=== PATIENT | female | born 1995 | race Hispanic/Latino ===

== ENCOUNTER 2023-04-26 10:03 | Emergency (ER) | payer SELFPAY ==
[2023-04-26 11:03] LABS: SARS-CoV-2 NAA Rapid Test Not Detected (NotDetected)
[2023-04-26] MEDS ORDERED: Dexamethasone 10 MG/ML VIAL ONE (11:50)
== END 2023-04-26 11:59 | disposition home or self-care (01) ==
LOC: CSHERS 10:03
DX: B34.9 Viral infection, unspecified (principal)
CPT/HCPCS: 87081; 87430; 99283; J1100; U0002

== ENCOUNTER 2024-01-30 22:40 | Emergency (ER) | payer SELFPAY | END 2024-01-31 00:19 | disposition home or self-care (01) | LOC: CSHERS 22:40 | DX: B34.9 Viral infection, unspecified (principal); B27.90 Infectious mononucleosis, unspecified without complication | CPT/HCPCS: 99283 ==